=== PATIENT | female | born 1950 | race Caucasian/White ===

== ENCOUNTER 2016-12-31 13:17 | Emergency (ER) | payer MEDICARE ==
[~2016-12-31] VITALS: Ht 177.8 cm; Wt 97.5 kg
[~2016-12-31 13:17] MED LIST: BIOT5000 PO; CALC500T21 PO; ENOX40P SQ; LORTA5 PO; NEUR400C PO; TAB-TAB PO; VITA5000 PO; VITA500T83 PO; Z.0.COMMODE-3:1; Z.0.CPM; Z.0.WALKERFRONT
[2016-12-31 13:20] VITALS: BP 123/60; PULSE 80; RESP 20; TEMP 97.3; O2SAT 96
[2016-12-31] MEDS ORDERED: NEUR400C PO (14:33)
[2016-12-31] MEDS ORDERED: TRAM50TA PO (14:33)
[2016-12-31 14:36] VITALS: BP 119/56; PULSE 70; RESP 18; O2SAT 99
--- NOTE | 2016-12-31 14:55 | PD ---
HPI Chief Complaint: Abnormal Results Time Seen by Provider: 14:45 Travel History International Travel<30 days: No Contact w/Intl Traveler<30days: No Traveled to known affect area: No History of Present Illness HPI Patient is a 66-year-old female who presents the emergency department with complaint of near syncopal episode. Patient has a long-standing history of low blood pressure. States that yesterday she was out in the heat for prolonged period and felt presyncopal. She rested, and this resolved. Her symptoms yesterday were only present when standing. Today, again after being outside patient had another spell of near syncope, this occurred at rest. The patient became lightheaded, nauseous and had a cold sweat. No chest pain, shortness of breath or palpitations. Patient states that she took her blood pressure with a wrist monitor and it was in the 70s to 80s systolic. Typically her blood pressures in the 100 systolic range. She has previously been evaluated by cardiology for this, and they did not feel her low blood pressure was symptomatic enough to warrant therapy. PFSH Past Medical History Hx Anticoagulant Therapy: No Arthritis: Yes Blood Disorders: No Anxiety: No Depression: No Cancer: No Cardiovascular Problems: No High Cholesterol: Yes Chemotherapy: No Cerebrovascular Accident: No Diabetes: No Diminished Hearing: No Endocrine: No Gastrointestinal Disorders: Yes (GASTRIC BYPASS) GERD: Yes Genitourinary: No Hepatitis: Yes ("B" 1984) Hiatal Hernia: Yes (REPAIRED) Immune Disorder: No Implanted Vascular Access Dvce: No Medical other: No Musculoskeletal: Yes (ARTHRITIS,BACK NECK) Neurologic: No Psychiatric: No Reproductive: No Respiratory: No Migraines: Yes Seizures: No Thyroid Disease: Yes (HX GOITER) Tetanus Vaccination: < 5 Years Influenza Vaccination: Yes ?: Not Menopausal: Yes Past Surgical History Abdominal Surgery: Yes (GASTRIC BYPASS) AICD: No Body Medical Devices: NONE Cardiac Surgery: No Ear Surgery: No Endocrine Surgery: No Eye Surgery: No Genitourinary Surgery: No Gynecologic Surgery: Yes (D&C) Hysterectomy: No Joint Replacement: Yes (LEFT TKR) Oral Surgery: No Pacemaker: No Thoracic Surgery: No Other Surgery: No Social History Alcohol Use: No Tobacco Use: No Substance Use: No Allergies-Medications (Allergen,Severity, Reaction): Coded Allergies: Codeine (Verified Allergy, Severe, NAUSEA, VERTIGO, 12/31/16) Reported Meds & Prescriptions Reported Meds & Active Scripts Active Reported Tramadol (Tramadol HCl) 50 Mg Tab 50 Mg PO Q4H PRN Neurontin (Gabapentin) 400 Mg Cap 400 Mg PO TID Review of Systems Except as stated in HPI: all other systems reviewed are Neg Physical Exam Narrative GENERAL: Elderly female in no acute distress SKIN: Warm and dry. HEAD: Normocephalic. EYES: No scleral icterus. No injection or drainage. ENT: Mucous membranes pink and moist. NECK: Supple CARDIOVASCULAR: Regular rate and rhythm. No murmur appreciated. RESPIRATORY: No accessory muscle use. Clear to auscultation. Breath sounds equal bilaterally. GASTROINTESTINAL: Abdomen soft, non-tender, nondistended. MUSCULOSKELETAL: No obvious deformities. No edema. NEUROLOGICAL: Awake and alert.Normal speech. PSYCHIATRIC: Appropriate mood and affect; insight and judgment normal. Data Data Last Documented VS Vital Signs Date Time Temp Pulse Resp B/P Pulse Ox O2 Delivery O2 Flow Rate FiO2 12/31/16 15:30 62 17 106/52 100 Room Air 12/31/16 13:20 97.3 Orders Electrocardiogram (12/31/16 14:50) Basic Metabolic Panel (Bmp) (12/31/16 14:50) Complete Blood Count With Diff (12/31/16 14:50) Magnesium (Mg) (12/31/16 14:50) Troponin I (12/31/16 14:50) Ecg Monitoring (12/31/16 14:50) Iv Access Insert/Monitor (12/31/16 14:50) Oximetry (12/31/16 14:50) Sodium Chloride 0.9% Flush (Ns Flush) (12/31/16 15:00) Sodium Chlorid 0.9% 500 Ml Inj (Ns 500 M (12/31/16 15:00) Labs Laboratory Tests Test 12/31/16 15:03 White Blood Count 6.7 TH/MM3 Red Blood Count 4.08 MIL/MM3 Hemoglobin 12.2 GM/DL Hematocrit 36.9 % Mean Corpuscular Volume 90.4 FL Mean Corpuscular Hemoglobin 30.0 PG Mean Corpuscular Hemoglobin 33.2 % Concent Red Cell Distribution Width 13.7 % Platelet Count 222 TH/MM3 Mean Platelet Volume 7.7 FL Neutrophils (%) (Auto) 75.7 % Lymphocytes (%) (Auto) 15.4 % Monocytes (%) (Auto) 6.4 % Eosinophils (%) (Auto) 1.9 % Basophils (%) (Auto) 0.6 % Neutrophils # (Auto) 5.1 TH/MM3 Lymphocytes # (Auto) 1.0 TH/MM3 Monocytes # (Auto) 0.4 TH/MM3 Eosinophils # (Auto) 0.1 TH/MM3 Basophils # (Auto) 0.0 TH/MM3 CBC Comment DIFF FINAL Differential Comment Sodium Level 140 MEQ/L Potassium Level 4.5 MEQ/L Chloride Level 105 MEQ/L Carbon Dioxide Level 27.7 MEQ/L Anion Gap 7 MEQ/L Blood Urea Nitrogen 20 MG/DL Creatinine 0.98 MG/DL Estimat Glomerular Filtration 57 ML/MIN Rate Random Glucose 91 MG/DL Calcium Level 9.2 MG/DL Magnesium Level 2.3 MG/DL Troponin I LESS THAN 0.02 NG/ML MDM Medical Decision Making Medical Screen Exam Complete: Yes Emergency Medical Condition: Yes Medical Record Reviewed: Yes Differential Diagnosis Pleasant 66-year-old female here with complaint of near syncopal event today, yesterday and history of same. Differential includes orthostatic hypotension, arrhythmia, dehydration, electrolyte abnormality, symptomatic anemia. My suspicion for ACS is low. Narrative Course Patient placed on monitor, IV established and blood obtained. Twelve-lead EKG shows sinus rhythm without notable ST abnormalities, normal intervals. Occasional PACs. Patient given 500 mL normal saline bolus. CBC, BMP, magnesium , troponin unremarkable. Patient reassured and discharged home. Diagnosis Primary Impression: Pre-syncope Additional Impression: Orthostatic hypotension Referrals: Primary Care Physician call for appointment Med/Other Pt SpecificInfo: No Change to Meds Disposition: 01 DISCHARGE HOME Condition: Stable Earline Haney MD Dec 31, 2016 14:55
[2016-12-31] MEDS ORDERED: SODIUM CHLORID 0.9% 500 ML INJ 500 ML IV ONE (15:00)
[2016-12-31] MEDS ORDERED: SODIUM CHLORIDE 0.9% FLUSH 5 ML FLUSH IVF PRN (15:00)
[2016-12-31 15:01] VITALS: O2SAT 99
[2016-12-31 15:09] VITALS: BP 105/57; PULSE 65; RESP 17; O2SAT 98
[2016-12-31 15:29] LABS: AUTOMATED NEUTROPHIL # 5.1 TH/MM3 (1.8-7.7); BASOPHIL % 0.6 % (0.0-2.0); EOSINOPHIL # 0.1 TH/MM3 (0-0.4); EOSINOPHIL % 1.9 % (0.0-4.0); HEMATOCRIT 36.9 % (35.0-46.0); HEMO FLAGS DIFF FINAL; LYMPH % 15.4 % (9.0-44.0); MEAN CELL VOLUME 90.4 FL (80.0-100.0); MEAN CORPUSCULAR HGB CONC 33.2 % (32.0-36.0); MONO % 6.4 % (0.0-8.0); NEUT % 75.7 % (16.0-70.0); PLATELET COUNT 222 TH/MM3 (150-450); RED BLOOD COUNT 4.08 MIL/MM3 (4.00-5.30); RED CELL DISTRIBUTION WIDTH 13.7 % (11.6-17.2); WHITE BLOOD COUNT 6.7 TH/MM3 (4.0-11.0)
[2016-12-31 15:30] VITALS: BP 106/52; PULSE 62; RESP 17; O2SAT 100
[2016-12-31 15:59] LABS: ANION GAP 7 MEQ/L (5-15); BICARBONATE 27.7 MEQ/L (21.0-32.0); BLOOD UREA NITROGEN 20 MG/DL (7-18); CHLORIDE 105 MEQ/L (98-107); GLOMERULAR FILTRATION RATE 57 ML/MIN (>89); MAGNESIUM 2.3 MG/DL (1.5-2.5); POTASSIUM 4.5 MEQ/L (3.5-5.1); SODIUM (NA) 140 MEQ/L (136-145)
--- NOTE | 2017-01-01 18:59 | EKG ---
Date Performed: 12/31/2016 Time Performed: 14:55:55 PTAGE: 66 years EKG: Sinus rhythm WITH OCCASIONAL SUPRAVENTRICULAR PREMATURE COMPLEXES Since previous tracing 06/30/2010, PAC's are ne w otherwise no significant change. BORDERLINE ECG PREVIOUS TRACING : 06/30/2010 17.40 DOCTOR: Brandin Guerrero Interpretating Date/Time 01/01/2017 18:58:30
== END 2016-12-31 16:49 | disposition home or self-care (01) ==
LOC: NEPA 13:17
DX: R55 Syncope and collapse (principal); I95.1 Orthostatic hypotension; E78.00 Pure hypercholesterolemia, unspecified; R94.31 Abnormal electrocardiogram [ECG] [EKG]
CPT/HCPCS: 80048; 83735; 84484; 85025; 93005; 99285; J7040